=== PATIENT | male | born 1980 | race Caucasian/White ===

== ENCOUNTER 2018-08-13 12:54 | Emergency (ER) | payer BC ==
[2018-08-13] MEDS ORDERED: Sodium Chloride 0.9% 10 ML Syringe FLUSH PRN (13:37)
--- NOTE | 2018-08-13 14:28 | CR ---
Abdomen: Supine and upright views of the abdomen were obtained. Comparison: No previous study. Orthopedic screw and other radiopacities are seen overlying or within the upper sacrum. No acute bony abnormality is seen. Bowel gas pattern is normal. No soft tissue findings are seen. Impression: 1. Incidental findings. Nothing acute is appreciated. Diagnostic code #2
--- NOTE | 2018-08-13 14:43 | EDM.PDOC ---
ED HPI GENERAL MEDICAL PROBLEM - General Chief Complaint: Genitourinary Problem Stated Complaint: ABDOMINAL PAIN Time Seen by Provider: 08/13/18 13:16 Source of Information: Reports: Patient History Limitations: Reports: No Limitations - History of Present Illness INITIAL COMMENTS - FREE TEXT/NARRATIVE: Patient is a 37-year-old male who presents to the ED complaining of lower abdominal pain and pain along his anus. Patient states approximately 2 weeks ago he was lifting a 600 pound mud Manuel and experienced pain to his lower abdomen. Patient states the pain comes and goes worse with ambulation and also with palpation. At rest normally there is no discomfort. States today with lowering a trailer Manuel he started experiencing pain again thus is here for evaluation. He states with onset of discomfort he felt like somebody had kicked him just behind his scrotum. There has been no pain to his scrotum or testicles. No swelling noted. No change in stool pattern. No voiding symptoms. He does have bilateral pain to the inguinal region. No history of inguinal hernia repair. He does have a history of fusion to the lumbar spine through anterior approach. Pain is along the surgical incision. Pain currently with examination is mild in nature. States he has no history of prostatitis. No bloody stool. No hematuria. No abnormal drainage. Currently in a monogamous relationship with his girlfriend. He has no history of STDs. He has been tested in the past with negative findings. No fever, no chills, no nausea/vomiting currently, no dysuria, and/or any additional complaints. Groin Pain Score (Numeric/FACES): 7 - Related Data Allergies Allergy/AdvReac Type Severity Reaction Status Date / Time No Known Allergies Allergy Verified 08/13/18 13:06 Home Meds: Home Meds ALPRAZolam [Xanax] 1 mg PO DAILY PRN 08/13/18 [History] Acetaminophen/HYDROcodone [[place] 325-5 MG] 1 tab PO Q6H PRN #12 tablet 08/13/18 [Rx] Ciprofloxacin HCl [Cipro] 500 mg PO BID #28 tablet 08/13/18 [Rx] ClonazePAM [KlonoPIN] 1 mg PO BID 08/13/18 [History] Doxycycline [Vibramycin] 100 mg PO BID #60 cap 08/13/18 [Rx] Past Medical History Psychiatric History: Reports: Anxiety - Past Surgical History Musculoskeletal Surgical History: Reports: Other (See Below) Other Musculoskeletal Surgeries/Procedures:: back and neck surgery Social & Family History - Tobacco Use Smoking Status *Q: Never Smoker - Caffeine Use Caffeine Use: Reports: Coffee - Recreational Drug Use Recreational Drug Use: No ED ROS GENERAL - Review of Systems Review Of Systems: ROS reveals no pertinent complaints other than HPI. ED EXAM, GI/ABD - Physical Exam Exam: See Below Exam Limited By: No Limitations General Appearance: Alert, WD/WN, No Apparent Distress Ears: Hearing Grossly Normal Nose: Normal Inspection Throat/Mouth: Normal Inspection, Normal Oropharynx, Normal Voice, No Airway Compromise Head: Atraumatic, Normocephalic Neck: Normal Inspection, Supple Respiratory/Chest: No Respiratory Distress, Lungs Clear, Normal Breath Sounds, No Accessory Muscle Use, Chest Non-Tender Cardiovascular: Normal Peripheral Pulses, Regular Rate, Rhythm, No Murmur GI/Abdominal Exam: Normal Bowel Sounds, Soft, No Organomegaly, No Distention, Tender (Suprapubic and inguinal bilateral. ). No: Hernia (Male) Exam: No Hernia, Normal Inspection, Circumcised. No: Inguinal Lymphadenopathy, Scrotum Tenderness (L), Scrotum Tenderness (R), Testicular Mass (obvious), Testicular Tenderness (L), Testicular Tenderness (R), Urethral Discharge Rectal (Males) Exam: Normal Rectal Tone, Tenderness (Processes quite tender to palpation. Examination was limited.) Back Exam: Normal Inspection Extremities: Normal Inspection Neurological: Alert, Oriented, CN II-XII Intact, Normal Cognition, No Motor/ Sensory Deficits Psychiatric: Normal Affect, Normal Mood Skin Exam: Warm, Dry, Intact, Normal Color Course - Vital Signs Last Recorded V/S: Last Vital Signs Temp 97.3 F 08/13/18 13:02 Pulse 50 L 08/13/18 13:02 Resp 16 08/13/18 13:02 BP 134/83 08/13/18 13:02 Pulse Ox 100 08/13/18 13:02 - Orders/Labs/Meds Orders: Active Orders 24 hr Category Date Time Status Peripheral IV Care [RC] . DIRECTED Care 08/13/18 13:38 Active Peripheral IV Insertion Adult [OM.PC] Routine Oth 08/13/18 13:37 Ordered Labs: Laboratory Tests 01/07/19 01/07/19 01/07/19 Range/Units 13:45 13:45 14:50 WBC 7.83 (4.23-9.07) K/mm3 RBC 4.67 (4.63-6.08) M/mm3 Hgb 14.7 (13.7-17.5) gm/L Hct 43.0 (40.1-51.0) % MCV 92.1 (79.0-92.2) fl MCH 31.5 (25.7-32.2) pg MCHC 34.2 (32.2-35.5) g/dl RDW Std Deviation 42.5 (35.1-43.9) fL Plt Count 263 (163-337) K/mm3 MPV 9.0 L (9.4-12.3) fl Neutrophils % (Manual) 56 (40-60) % Band Neutrophils % 0 (0-10) % Lymphocytes % (Manual) 35 (20-40) % Atypical Lymphs % 0 % Monocytes % (Manual) 8 (2-10) % Eosinophils % (Manual) 1 (0.8-7.0) % Basophils % (Manual) 0 L (0.2-1.2) Platelet Estimate Adequate Plt Morphology Comment Normal RBC Morph Comment Normal Sodium 143 (136-145) mEq/L Potassium 3.8 (3.5-5.1) mEq/L Chloride 107 (98-107) mEq/L Carbon Dioxide 27 (21-32) mEq/L Anion Gap 12.8 (5-15) BUN 17 (7-18) mg/dL Creatinine 1.0 (0.7-1.3) mg/dL Est Cr Clr Drug Dosing 111.01 mL/min Estimated GFR (MDRD) > 60 (>60) mL/min BUN/Creatinine Ratio 17.0 (14-18) Glucose 100 (74-106) mg/dL Calcium 9.0 (8.5-10.1) mg/dL Total Bilirubin 0.3 (0.2-1.0) mg/dL AST 17 (15-37) U/L ALT 24 (16-63) U/L Alkaline Phosphatase 66 (46-116) U/L C-Reactive Protein < 0.2 (<1.0) mg/dL Total Protein 7.2 (6.4-8.2) g/dl Albumin 4.1 (3.4-5.0) g/dl Globulin 3.1 gm/dL Albumin/Globulin Ratio 1.3 (1-2) Urine Color Light yellow (Yellow) Urine Appearance Clear (Clear) Urine pH 7.0 (5.0-8.0) Ur Specific [place] 1.015 (1.005-1.030) Urine Protein Negative (Negative) Urine Glucose (UA) Negative (Negative) Urine Ketones Negative (Negative) Urine Occult Blood Negative (Negative) Urine Nitrite Negative (Negative) Urine Bilirubin Negative (Negative) Urine Urobilinogen 0.2 (0.2-1.0) Ur Leukocyte Esterase Negative (Negative) Urine RBC Not seen (0-5) /hpf Urine WBC 0-5 (0-5) /hpf Ur Epithelial Cells 0-5 (0-5) /hpf Urine Bacteria Not seen (FEW) /hpf Urine Mucus Not seen (FEW) /hpf Meds: Medications Discontinued Medications Generic Name Dose Route Start Last Admin Trade Name Freq PRN Reason Stop Dose Admin Diatrizoate Meglum/Diatrizoate Sod 90 ml 08/13/18 15:36 08/13/18 15:37 Gastrografin 37% PO 08/13/18 15:37 90 ml ONETIME ONE Administration Iopamidol 100 ml 08/13/18 15:36 08/13/18 15:38 Isovue-300 (61%) IVPUSH 08/13/18 15:37 100 ml ONETIME ONE Administration Sodium Chloride 10 ml 08/13/18 13:37 08/13/18 13:48 Saline Flush FLUSH 10 ml ASDIRECTED PRN Administration Keep Vein Open Sodium Chloride 10 ml 08/13/18 15:36 08/13/18 15:38 Saline Flush FLUSH 08/13/18 15:37 10 ml ONETIME ONE Administration - Re-Assessments/Exams Free Text/Narrative Re-Assessment/Exam: Initial labs and studies to be obtained include: CBC, chem 14, CRP, two-view of the abdomen x-ray, and UA. Pain is well-controlled without movement. On examination patient does have some perianal pain and also tender prostate. Prostate examination was limited. No testicular pain. Abdominal wall pain with palpation to the lower abdomen and along the inguinal region. Pain is again worsened with movement as well. Labs reviewed: CBC essentially normal, She panel was essentially normal, CRP normal UA negative. X-ray of the abdomen did not reveal any concerning findings. CT of the abdomen and pelvis with oral and IV contrast has been ordered. CT abdomen/pelvis with contrast Impression: 1. Degenerative change within the spine with previous lower lumbar spine surgery. 2. No additional abnormality is seen on CT study of the abdomen and pelvis. Nothing acute is appreciated. Suspect patient may have strained the abdominal wall with lifting event. In addition he is quite tender on examination of his prostate suggesting prostatitis. Treatment will be Cipro 500 mg twice a day for 14 days then doxycycline 100 mg twice a day for a month. Will discharge patient home with narcotic pain medications as well. Follow-up with primary care provider in the next 7-10 days for reevaluation. He may require urology consult as well if therapy inadequate. Return precautions discussed with the patient. Discharge instructions as documented. Departure - Departure Time of Disposition: 16:12 Disposition: Home, Self-Care 01 Condition: Good Clinical Impression: Muscle strain, Prostatitis, acute Abdominal muscle strain Qualifiers: Encounter type: initial encounter Qualified Code(s): S39.011A - Strain of muscle, fascia and tendon of abdomen, initial encounter - Discharge Information Prescriptions: Acetaminophen/HYDROcodone [[place] 325-5 MG] 1 tab PO Q6H PRN #12 tablet PRN Reason: Pain (Severe 7-10) Ciprofloxacin HCl [Cipro] 500 mg PO BID #28 tablet Doxycycline [Vibramycin] 100 mg PO BID #60 cap Instructions: Muscle Strain, [id number], Prostatitis, [id number] Referrals: Radha Quiroga DISTRIBUTION DESIGNER [Primary Care Provider] - Forms: ED Department Discharge, ED Return to Work/School Form Additional Instructions: Suspect you have strained your abdominal wall with recent lifting event. This will take quite some time to heal. Refrain from activities that cause worsening discomfort. Take ibuprofen and Tylenol in alternating fashion for pain. For severe pain take [place] one tab every 6 hours. Do not take Tylenol and [place] together. Do not drive or operate heavy equipment while taking the [place]. In addition on examination your quite tender with palpation of your prostate suggesting prostatitis. Treatment will be Cipro 500 mg twice a day for 14 days then doxycycline 100 mg twice a day for one month. Follow-up with PCP in the next 7-10 days for reevaluation. Return to the ED if you develop any new or worsening symptoms. - My Orders Last 24 Hours: My Active Orders 08/13/18 13:37 Peripheral IV Insertion Adult [OM.PC] Routine 08/13/18 13:38 Peripheral IV Care [RC] . DIRECTED - Assessment/Plan Last 24 Hours: My Active Orders 08/13/18 13:37 Peripheral IV Insertion Adult [OM.PC] Routine 08/13/18 13:38 Peripheral IV Care [RC] . DIRECTED
[2018-08-13] MEDS ORDERED: Sodium Chloride 0.9% 10 ML Syringe FLUSH ONE (15:36)
[2018-08-13] MEDS ORDERED: Diatrizoate Meglumine/Diatrizoate Sodium 37% 120 ML Bottle PO ONE (15:36)
[2018-08-13] MEDS ORDERED: Iopamidol 612 MG/ML 100 ML Bottle IVPUSH ONE (15:36)
--- NOTE | 2018-08-13 16:00 | CT ---
CT abdomen and pelvis Technique: Multiple axial sections were obtained from above the dome of the diaphragm inferiorly through the pubic symphysis. Intravenous and oral contrast was utilized. Delayed images were obtained through the bladder. Comparison: Previous abdominal x-ray performed on the same day (2:00 PM). Findings: Visualized lung bases shows nothing acute. Liver contains no focal parenchymal abnormality. Spleen appears within normal limits. Gallbladder contains no calcified gallstones. Adrenal glands show no nodule. Pancreas is within normal limits. Kidneys show symmetric contrast enhancement without hydronephrosis or mass.. Aorta shows no aneurysm. No retroperitoneal adenopathy or mesenteric abnormalities are seen. No pelvic mass or adenopathy is seen. Delayed images shows contrast within the distal ureters and within the bladder. Appendix is seen which is normal in size. No bowel dilatation is seen. Bone window settings were reviewed which shows degenerative change within the L5-S1 disc with previous surgery. Disc space narrowing is noted at T11-T12 with anterior osteophytes. No acute osseous abnormality is seen. Impression: 1. Degenerative change within the spine with previous lower lumbar spine surgery. 2. No additional abnormality is seen on CT study of the abdomen and pelvis. Nothing acute is appreciated. Diagnostic code #2
== END 2018-08-13 16:39 | disposition home or self-care (01) ==
LOC: JD.ED 12:54
DX: S39.011A Strain of muscle, fascia and tendon of abdomen, initial encounter (principal); N41.0 Acute prostatitis; F41.9 Anxiety disorder, unspecified; X50.0XXA Overexertion from strenuous movement or load, initial encounter
CPT/HCPCS: 36415; 74019; 74177; 80053; 81001; 85007; 85027; 86140; 99284; Q9963; Q9967

== ENCOUNTER 2018-11-12 11:55 | Emergency (ER) | payer BC, OTHER ==
--- NOTE | 2018-11-12 12:15 | EDM.PDOC ---
<Tanvir Rios - Last Filed: 11/12/18 12:31> ED HPI GENERAL MEDICAL PROBLEM - General Chief Complaint: Upper Extremity Injury/Pain Stated Complaint: SHOULDER/NECK PAIN Time Seen by Provider: 11/12/18 12:15 Source of Information: Reports: Patient History Limitations: Reports: No Limitations - History of Present Illness INITIAL COMMENTS - FREE TEXT/NARRATIVE: Giovanni Delgadillo is a 38 year old male who presents to the clinic for right neck and shoulder pain. The pains started yesterday afternoon when when he was changing his breakpads and rotors. He states that he started to develope the pain after he lifted the rotor and he had to stop shortly after because the pain was to much. He describes the pain has a sharp 8 out of 10 pain in his neck that is worse with flexion and extension of his head. Nothing makes the pain better and he describes it as constant. He states that the pain starts at the base of his skull then goes down into his shoulder all the way to his elbow. He has never had this pain before but he states that it feels like when he had a broken clavicle. He does have a history of neck surgery back in 2009 in [place] but he isn't sure if they placed an artificial disc or if they fused the cervical spine. He has tried to take Tylenol, Aspirin, and Ibuprofen 800 with no relief. He denies any allergies and is only taking Klonopin. - Related Data Allergies Allergy/AdvReac Type Severity Reaction Status Date / Time No Known Allergies Allergy Verified 08/13/18 13:06 Home Meds: Home Meds ClonazePAM [KlonoPIN] 1 mg PO BID 08/13/18 [History] Cyclobenzaprine [Flexeril] 10 mg PO TID PRN #21 tab 11/12/18 [Rx] Review of Systems - Review of Systems Constitutional: Reports: No Symptoms Eyes: Reports: No Symptoms Cardiovascular: Reports: No Symptoms GI/Abdominal: Reports: No Symptoms Musculoskeletal: Reports: Neck Pain, Shoulder Pain, Arm Pain, Other (No claudation, No weakness, No joint stiffness). Denies: Back Pain, Hand Pain, Joint Pain, Joint Swelling Neurological: Reports: No Symptoms ED EXAM, GENERAL - Physical Exam Exam Limited By: No Limitations General Appearance: Alert, WD/WN, No Apparent Distress Eye Exam: Bilateral Eye: Normal Inspection Head: Atraumatic, Normocephalic Neck: Normal Inspection, Supple, Full Range of Motion, Tender Lateral, Tender Midline, Other (Tenderness located along [place] and Insertion of Trapezius muscle ) Respiratory/Chest: No Respiratory Distress, Lungs Clear, Normal Breath Sounds, No Accessory Muscle Use, Chest Non-Tender Cardiovascular: Normal Peripheral Pulses, Regular Rate, Rhythm, No Edema, No Gallop, No JVD, No Murmur, No Rub Peripheral Pulses: 2+: Brachial (L), Brachial (R), Radial (L), Radial (R) Extremities: Normal Inspection, Non-Tender, No Pedal Edema, Normal Capillary Refill, Limited Range of Motion (Due to pain). No: Joint Swelling, Increased Warmth Neurological: No Motor/Sensory Deficits Psychiatric: Normal Affect, Normal Mood Course - Vital Signs Last Recorded V/S: Last Vital Signs Temp 98.7 F 11/12/18 12:18 Pulse 55 L 11/12/18 12:18 Resp 20 11/12/18 12:18 BP 139/97 H 11/12/18 12:18 Pulse Ox 98 11/12/18 12:18 - Orders/Labs/Meds Meds: Medications Discontinued Medications Generic Name Dose Route Start Last Admin Trade Name Freq PRN Reason Stop Dose Admin Ketorolac Tromethamine 60 mg 11/12/18 13:37 11/12/18 13:57 Toradol IM 11/12/18 13:38 60 mg ONETIME ONE Administration Departure - Departure Disposition: Home, Self-Care 01 Clinical Impression: Strain of cervical portion of trapezius muscle - Discharge Information Prescriptions: Cyclobenzaprine [Flexeril] 10 mg PO TID PRN #21 tab PRN Reason: Pain (Severe 7-10) Instructions: Muscle Strain, [id number] Referrals: Radha Quiorga [employer] SK[employer] MAINTENANCE SUPERVISOR [Primary Care Provider] - Forms: ED Department Discharge, ED Return to Work/School Form Additional Instructions: As discussed suspect you have a cervical/trapezius muscle strain. Treatment will consist of Flexeril 10 mg 3 times a day as needed for pain. Tylenol 650 mg every 6 hours and ibuprofen 600 mg every 6 hrs in alternating fashion for pain. May utilize ice and heat to the affected area as needed. Gentle massage may be of benefit. Please see your PCP in 3-5 days for reevaluation. As discussed if he developed any new or worsening symptoms please return back to the ED for reevaluation. <RogersLázaro nielsen O - Last Filed: 11/12/18 22:00> ED HPI GENERAL MEDICAL PROBLEM - General Source of Information: Reports: Patient Right Shoulder Pain Score (Numeric/FACES): 8 Past Medical History Psychiatric History: Reports: Anxiety - Past Surgical History Musculoskeletal Surgical History: Reports: Other (See Below) Other Musculoskeletal Surgeries/Procedures:: back and neck surgery Social & Family History - Caffeine Use Caffeine Use: Reports: Coffee Review of Systems - Review of Systems Review Of Systems: See Below ED EXAM, GENERAL - Physical Exam Exam: See Below Course - Vital Signs Last Recorded V/S: Last Vital Signs Temp 98.7 F 11/12/18 12:18 Pulse 55 L 11/12/18 12:18 Resp 20 11/12/18 12:18 BP 139/97 H 11/12/18 12:18 Pulse Ox 98 11/12/18 12:18 - Orders/Labs/Meds Meds: Medications Discontinued Medications Generic Name Dose Route Start Last Admin Trade Name Ross PRN Reason Stop Dose Admin Ketorolac Tromethamine 60 mg 11/12/18 13:37 11/12/18 13:57 Toradol IM 11/12/18 13:38 60 mg ONETIME ONE Administration - Re-Assessments/Exams Free Text/Narrative Re-Assessment/Exam: I have personally examined the patient and agree with physical findings in history of present illness per Tanvir KOHLER. He reports pain to the lateral aspect of the right side of the neck and also with turning his neck left to right and also with extension and flexion. He has a history of surgery to the right neck anterior approach unclear if this was a fusion or placement of fake disc. He had a surgery to his low back as well and does not recall if this was a fusion or placement of fake disc. Patient denies any trauma that precipitated the pain. Pain was caused by lifting heavy items yesterday. He does have some pain that radiates down the posterior aspect of his right arm almost to the elbow. There is no sensory changes distally and/or weakness noted. He has full range of motion of his right arm. He has limited range of motion of his neck secondary to increasing pain to the right lateral aspect of his neck. He has been utilizing ibuprofen and Tylenol for pain with some relief. On examination he has limited range of motion secondary to pain. No midline cervical neck pain. Pain noted to the right trapezius region with radiation into his shoulder. There is no sensory motor deficits noted to the right arm. Pulses are intact. No weakness discrepancy is noted as well. I suspect patient has a muscle strain. Treatment will consist of Toradol 60 mg today here in the ED. Flexeril 10 mg one tab 3 times a day as needed. He'll be off work for the next 3 days. He'll follow up with PCP in the next 3-5 days for reevaluation. MRI of the cervical spine may be indicated if pain persists. I do believe patient does have some cervical radiculopathy secondary to the muscle tension present. At this point I do not believe a MRI is required on an emergent basis. I have offered to obtain an x-ray of the neck and/or CT of the cervical spine. Patient has refused. Return precautions were discussed with him. He had no further questions concerns. Discharge instructions as documented. Departure - Departure Time of Disposition: 13:35 Condition: Good
[2018-11-12] MEDS ORDERED: Ketorolac 60 MG/2 ML SDV IM ONE (13:37)
== END 2018-11-12 14:00 | disposition home or self-care (01) ==
LOC: JD.ED 11:55
DX: S46.811A Strain of other muscles, fascia and tendons at shoulder and upper arm level, right arm, initial encounter (principal); X50.3XXA Overexertion from repetitive movements, initial encounter
CPT/HCPCS: 96372; 99283; J1885